=== PATIENT | male | born 1995 | race Caucasian/White ===

== ENCOUNTER 2016-11-08 15:21 | Observation (INO) | payer OTHER ==
[~2016-11-08] VITALS: Ht 172.7 cm; Wt 83.1 kg
[2016-11-08] VITALS (261 sets, daily range): BP systolic 140–154; BP diastolic 80–84; PULSE 123–144; TEMP 97.8–99.9; O2SAT 38–100
[~2016-11-08 15:21] MED LIST: EPI EZ PEN1 MG/ML IM; NO HOME MEDICATIONS; PREDNISONE20 MG PO
[2016-11-08 15:41] LABS: BASO # 0.1 (0.0-0.2); BASO % 0.9 % (0.0-2.0); EOS % 0.3 % (0-4.0); GRAN # 9.4 (1.4-6.5); GRAN % 80.4 % (42.2-75.2); HEMATOCRIT 43.1 % (42.0-52.0); HEMOGLOBIN 14.3 g/dl (13.5-18.0); LYMPH # 1.8 (1.2-3.4); LYMPH % 15.4 % (20.0-51.0); MEAN CELL VOLUME 91 fl (80.0-100.0); MEAN CORPUSCULAR HEMOGLOBIN 30 pg (27.0-31.0); MEAN CORPUSCULAR HGB CONC 33 g/dl (33.0-37.0); MEAN PLATELET VOLUME 10.3 fl (7.4-10.4); MONO # 0.3 (0.1-0.6); MONO % 2.6 % (1.7-9.3); PLATELET COUNT 340 K/mm3 (130-400); RED BLOOD COUNT 4.72 M/mm3 (4.20-5.60); REDCELL DISTRIBUTION WIDTH-CV 12.9 % (11.5-14.5); WHITE BLOOD COUNT 11.7 K/mm3 (4.8-10.8)
[2016-11-08 15:44] LABS: INR 0.9 (0.8-3.0); PROTHROMBIN TIME 10.3 SECONDS (9.7-12.8)
[2016-11-08 15:50] LABS: ADJUSTED CALCIUM 8.7 mg/dL (8.4-10.2); ALANINE AMINOTRANSFERASE 60 U/L (21-72); ALKALINE PHOSPHATASE 76 U/L (50-136); ANION GAP 24 mmol/L (7-16); BILIRUBIN,TOTAL 0.6 mg/dL (0.0-1.0); BLOOD UREA NITROGEN 12 mg/dL (9-20); CALCIUM 9.5 mg/dL (8.4-10.2); CARBON DIOXIDE 19 mmol/L (22-30); CHLORIDE 99 mmol/L (98-107); CREATINE KINASE 159 U/L (55-170); CREATININE, serum 1.25 mg/dL (0.66-1.25); GLUCOSE 148 mg/dL (74-106); POTASSIUM 3.6 mmol/L (3.4-5.0); SODIUM 142 mmol/L (137-145); TOTAL PROTEIN 8.2 gm/dL (6.4-8.2)
[2016-11-08 15:55] LABS: ACETAMINOPHEN < 10 ug/mL (10-30); SALICYLATE < 1.0 mg/dL
[2016-11-08 16:05] LABS: PROLACTIN 39.6 ng/mL (3.7-17.9)
[2016-11-08 17:16] LABS: AMPHETAMINE URINE POSITIVE; BARBITURATES URINE NEGATIVE; BENZODIAZEPINES URINE NEGATIVE; BUPRENORPHINE URINE NEGATIVE; METHADONE URINE NEGATIVE; OPIATES URINE NEGATIVE; OXYCODONE URINE NEGATIVE; PHENCYCLIDINE URINE NEGATIVE; PROPOXYPHENE URINE NEGATIVE; THC CANNABINOIDS URINE NEGATIVE
[2016-11-09] VITALS (409 sets, daily range): BP systolic 124–129; BP diastolic 66–89; PULSE 58–83; TEMP 97.2–98.7; O2SAT 76–100
[2016-11-09 06:16] LABS: BASO % 0.5 % (0.0-2.0); EOS # 0.1 (0.0-0.7); EOS % 1.8 % (0-4.0); GRAN # 4.7 (1.4-6.5); HEMATOCRIT 38.1 % (42.0-52.0); HEMOGLOBIN 12.7 g/dl (13.5-18.0); LYMPH # 2.1 (1.2-3.4); LYMPH % 27.1 % (20.0-51.0); MEAN CELL VOLUME 91 fl (80.0-100.0); MEAN CORPUSCULAR HEMOGLOBIN 30 pg (27.0-31.0); MEAN CORPUSCULAR HGB CONC 33 g/dl (33.0-37.0); MEAN PLATELET VOLUME 10.2 fl (7.4-10.4); MONO # 0.7 (0.1-0.6); MONO % 8.5 % (1.7-9.3); RED BLOOD COUNT 4.18 M/mm3 (4.20-5.60); REDCELL DISTRIBUTION WIDTH-CV 13.4 % (11.5-14.5); WHITE BLOOD COUNT 7.6 K/mm3 (4.8-10.8)
[2016-11-09 06:19] LABS: PLATELET COUNT 222 K/mm3 (130-400)
[2016-11-09 06:29] LABS: PROTHROMBIN TIME 11.6 SECONDS (9.7-12.8)
[2016-11-09 06:40] LABS: ADJUSTED CALCIUM 8.9 mg/dL (8.4-10.2); ALBUMIN 3.4 gm/dL (3.5-5.0); BILIRUBIN,TOTAL 0.7 mg/dL (0.0-1.0); CALCIUM 8.4 mg/dL (8.4-10.2); CREATININE, serum 0.85 mg/dL (0.66-1.25); POTASSIUM 3.9 mmol/L (3.4-5.0)
== END 2016-11-09 19:15 | disposition home or self-care (01) ==
LOC: COL.ER 15:21 → ICU 16:31
PROVIDERS: Emergency Medicine; Internal Medicine
DX: F14.10 Cocaine abuse, uncomplicated (principal); R41.82 Altered mental status, unspecified; R45.1 Restlessness and agitation; R41.0 Disorientation, unspecified; Y90.7 Blood alcohol level of 200-239 mg/100 ml; F11.129 Opioid abuse with intoxication, unspecified; F10.929 Alcohol use, unspecified with intoxication, unspecified; F15.129 Other stimulant abuse with intoxication, unspecified; I47.1 Supraventricular tachycardia
CPT/HCPCS: G0378; J0153; J2060; J3360; J7030; J7050

== ENCOUNTER → 2016-12-02 | Outpatient (REF) | LOC: WSOH 11:08 | DX: Z02.1 Encounter for pre-employment examination (principal) ==